=== PATIENT | male | born 1995 | race Hispanic/Latino ===

== ENCOUNTER 2022-02-03 13:52 | Emergency (ER) | payer SELFPAY ==
--- NOTE | 2022-02-03 15:22 | RAD REPORT ---
EXAM DESCRIPTION: RAD - Wrist Right 3 View - 02/03/2022 2:32 pm CLINICAL HISTORY: fb, wound to the wrist, wrist pain COMPARISON: No comparisons FINDINGS: No fracture is identified. There is no dislocation or periosteal reaction noted. Soft tiss ue injury is present medial wrist at the level of the triquetrum and pisiform bones. There is outward tenting of soft tissue but no air or foreign body identifiable. IMPRESSION: Medial wrist soft tissue injury without identifiable tear or foreign body in the soft ti ssues.
--- NOTE | 2022-02-03 17:17 | EDPHYS ---
Physician Documentation [facility] Name: Toro Maldonado Age: 26 yrs Sex: Male : 1995 Arrival Date: 02/03/2022 Time: 13:54 Bed 12 Private MD: ED Physician Jose Gaviria HPI: 02/03 14:11 This 26 yrs old Male presents to ER via Ambulatory with complaints of Abscess. [facility] 14:11 Onset: The symptoms/episode began/occurred acutely, 2 week(s) ago. Is a 26-year-old [facility] male with no known chronic medical conditions presents emerged department with swelling to his right wrist. Patient states that he was impaled by wood while at work approximately 2 weeks ago. He pulled the wood out himself and clean the wound. States now he has swelling mass coming from the puncture site. Historical: - Allergies: 14:07 No Known Allergies; hb - Immunization history:: Adult Immunizations up to date. - Social history:: Smoking status: Patient denies any tobacco usage or history of. ROS: 14:11 Constitutional: Negative for fever, chills, and weight loss, Cardiovascular: Negative jmm for chest pain, palpitations, and edema, Respiratory: Negative for shortness of breath, cough, wheezing, and pleuritic chest pain. 14:11 MS/extremity: Positive for pain, swelling. 14:11 All other systems are negative. Exam: 14:11 Constitutional: This is a well developed, well nourished patient who is awake, alert, jmm and in no acute distress. Head/Face: atraumatic. Eyes: EOMI, no conjunctival erythema appreciated ENT: Moist Mucus Membranes Neck: Trachea midline, Supple Chest/axilla: Normal chest wall appearance and motion. Cardiovascular: Regular rate and rhythm. No edema appreciated Respiratory: Normal respirations, no respiratory distress appreciated Abdomen/GI: Non distended Back: Normal ROM MS/ Extremity: Moves all extremities, no obvious deformities appreciated, no edema noted to the lower extremities 14:11 Skin: Nodular mass noted coming from the left wrist, no surrounding erythema, no induration appreciated, no purulent drainage appreciated. 14:11 Neuro: Motor: is normal. Vital Signs: 14:06 BP 112 / 59; Pulse 78; Resp 18; Temp 98.0; Pulse Ox 100% on R/A; Weight 104.33 kg; hb Height 6 ft. 1 in. (185.42 cm); Pain 5/10; 17:20 BP 115 / 78; Pulse 82; Resp 16; Pulse Ox 100% ; Pain 2/10; kb3 14:06 Body Mass Index 30.34 (104.33 kg, 185.42 cm) hb MDM: 14:11 Patient medically screened. [facility] 17:16 Data reviewed: vital signs, nurses notes. Counseling: I had a detailed discussion with miguel the patient and/or guardian regarding: the historical points, exam findings, and any diagnostic results supporting the discharge/admit diagnosis, the need for outpatient follow up, to return to the emergency department if symptoms worsen or persist or if there are any questions or concerns that arise at home. 02/03 14:11 Order name: Wrist Right 3 View XRAY; Complete Time: 15:23 [facility] 02/03 16:13 Order name: Wound Care; Complete Time: 16:58 [facility] Administered Medications: No medications were administered Disposition: 18:51 Co-signature as Attending Physician, Jose Gaviria MD. rn Disposition Summary: 02/03/22 17:17 Discharge Ordered Location: Home [facility] Condition: Stable [facility] Diagnosis - Hand Puncture [facility] Followup: [facility] - With: Edilberto Ramirez MD - When: 2 - 3 days - Reason: Recheck today's complaints, Continuance of care, Re-evaluation by your physician Discharge Instructions: - Discharge Summary Sheet [facility] - Puncture Wound [facility] Forms: - Medication Reconciliation Form [facility] - Thank You Letter [facility] - Antibiotic Education [facility] - Prescription Opioid Use [facility] Prescriptions: - Augmentin 875-125 mg Oral Tablet - take 1 tablet by ORAL route every 12 hours for 10 days; 20 tablet; Refills: 0, [facility] Product Selection Permitted Signatures: Dispatcher [employer] Oscar Simpson PA PA jmm Nieto, Roman, MD MD rn Baxter, Heather, RN RN hb
--- NOTE | 2022-02-03 17:17 | ER ---
Nurse's Notes [facility] Name: Toro Maldonado Age: 26 yrs Sex: Male : 1995 Arrival Date: 02/03/2022 Time: 13:54 Bed 12 Private MD: Diagnosis: Hand Puncture Presentation: 02/03 14:06 Chief complaint: Right wrist abscess x 3 days. Pt reports he got a piece of wood stuck hb inside while working approx 3 weeks ago, attempted to remove with knife but was unsuccessful. Coronavirus screen: At this time, the client does not indicate any symptoms associated with coronavirus-19. Ebola Screen: No symptoms or risks identified at this time. Risk Assessment: Do you want to hurt yourself or someone else? Patient reports no desire to harm self or others. Onset of symptoms was January 31, 2022. 14:06 Method Of Arrival: Ambulatory hb 14:06 Acuity: ASHA 3 hb 17:02 Initial Sepsis Screen: Does the patient meet any 2 criteria? No. Patient's initial kb3 sepsis screen is negative. Does the patient have a suspected source of infection? No. Patient's initial sepsis screen is negative. Triage Assessment: 14:09 General: Appears in no apparent distress. Behavior is calm, cooperative. Pain: Pain hb currently is 5 out of 10 on a pain scale. Neuro: Level of Consciousness is awake, alert, obeys commands, Oriented to person, place, time, situation. Cardiovascular: Patient's skin is warm and dry. Respiratory: Respiratory effort is even, unlabored, Respiratory pattern is regular, symmetrical. Historical: - Allergies: 14:07 No Known Allergies; hb - Immunization history:: Adult Immunizations up to date. - Social history:: Smoking status: Patient denies any tobacco usage or history of. Screenin:05 Abuse screen: Denies threats or abuse. Denies injuries from another. Nutritional kb3 screening: No deficits noted. Tuberculosis screening: No symptoms or risk factors identified. Fall Risk None identified. Assessment: 14:05 General: Received care of pt from triage with wound to his right medial wrist. Pt kb3 reports he got a large splinter of wood in the wrist 4 days ago and he removed it but the wound has continued to swell, bleed and is now red and painful. . 14:05 Pain: Complains of pain in medial aspect of right wrist and medial aspect of right hand kb3 Pain does not radiate. Pain currently is 7 out of 10 on a pain scale. Injury Description: Puncture sustained to medial aspect of right hand. 14:21 General: xray at bedside. kb3 16:00 General: Updated pt regarding delay due to multiple emergencies in ED at this time. PT kb3 states understanding. No questions, no needs reported. Vital Signs: 14:06 BP 112 / 59; Pulse 78; Resp 18; Temp 98.0; Pulse Ox 100% on R/A; Weight 104.33 kg; hb Height 6 ft. 1 in. (185.42 cm); Pain 5/10; 17:20 BP 115 / 78; Pulse 82; Resp 16; Pulse Ox 100% ; Pain 2/10; kb3 14:06 Body Mass Index 30.34 (104.33 kg, 185.42 cm) hb ED Course: 13:54 Patient arrived in ED. mr 14:01 Oscar Bangura PA is PHCP. jmm 14:01 Jose Gaviria MD is Attending Physician. jmm 14:05 Patient has correct armband on for positive identification. Bed in low position. Call kb3 light in reach. 14:07 Triage completed. hb 14:08 Leti Ramirez, RN is Primary Nurse. kb3 14:09 Arm band placed on. hb 14:34 Wrist Right 3 View XRAY In Process Unspecified. EDMS 16:58 No provider procedures requiring assistance completed. Patient did not have IV access kb3 during this emergency room visit. 16:58 Dressings: Kerlix X 1; right hand 4X4s X 2; right hand. kb3 17:16 Edilberto Ramirez MD is Referral Physician. [facility] Administered Medications: No medications were administered Medication: 14:05 VIS not applicable for this client. kb3 Outcome: 17:02 Discharged to home ambulatory. kb3 17:02 Condition: stable 17:02 Discharge instructions given to patient, Instructed on discharge instructions, follow up and referral plans. medication usage, wound care, Demonstrated understanding of instructions, follow-up care, medications, wound care, Prescriptions given X 1. 17:17 Discharge ordered by MD. jmm 17:21 Patient left the ED. kb3 Signatures: Dispatcher [employer] EDMS Oscar Bangura PA PA jmm Rivera, Mary mr KimPippa, RN RN hb Leti Ramirez RN RN kb3 Corrections: (The following items were deleted from the chart) 14: 14:06 Chief complaint: Right wrist abscess x 3 days. Pt reports he got a piece of wood hb stuck inside while working approx 3 weeks ago. hb 14:16 14:06 Acuity: ASHA 4 hb hb
[2022-02-05 08:39] VITALS: TEMP 98; O2SAT 100
[2022-02-05 08:54] VITALS: BP 115/78
== END 2022-02-03 17:21 | disposition home or self-care (01) ==
LOC: ER 13:52
DX: S61.431A Puncture wound without foreign body of right hand, initial encounter (principal)
CPT/HCPCS: 99283